=== PATIENT | female | born 1960 | race Caucasian/White ===

== ENCOUNTER 2022-11-29 21:42 | Emergency (ER) | payer BC ==
[2022-11-29] MEDS ORDERED: Lidocaine 1%/Epinephrine 1:100K 10 ML VIAL ONE ×2 (22:04→22:46)
[2022-11-29] MEDS ORDERED: Bacitracin 1 PK ONE (22:56)
== END 2022-11-29 23:23 | disposition home or self-care (01) ==
LOC: BURERS 21:42
DX: S71.112A Laceration without foreign body, left thigh, initial encounter (principal); S01.112A Laceration without foreign body of left eyelid and periocular area, initial encounter; E03.9 Hypothyroidism, unspecified; Z79.899 Other long term (current) drug therapy; W17.89XA Other fall from one level to another, initial encounter
CPT/HCPCS: 12011; 12032